=== PATIENT | female | born 1970 | race Caucasian/White ===

== ENCOUNTER → 2019-11-09 16:41 | Outpatient (BNVA) | payer BC, SELFPAY | PROVIDERS: Visit Provider Obstetrics & Gynecology | DX: Z12.4 Encounter for screening for malignant neoplasm of cervix (principal); N76.3 Subacute and chronic vulvitis; N95.1 Menopausal and female climacteric states | CPT/HCPCS: 88175 ==

== ENCOUNTER → 2020-08-26 08:24 | Outpatient (BNVA) | payer BC, SELFPAY | PROVIDERS: Visit Provider Plastic Surgery | DX: Z20.822 Contact with and (suspected) exposure to COVID-19 (principal); Z01.812 Encounter for preprocedural laboratory examination | CPT/HCPCS: 87635 ==

== ENCOUNTER → 2020-11-29 08:56 | Outpatient (BNVA) | payer BC, SELFPAY | PROVIDERS: Visit Provider Obstetrics & Gynecology | DX: R93.89 Abnormal findings on diagnostic imaging of other specified body structures (principal) | CPT/HCPCS: 76830; 88305 ==

== ENCOUNTER → 2021-11-17 12:04 | Outpatient (BNVA) | payer BC, SELFPAY | PROVIDERS: Visit Provider Obstetrics & Gynecology | DX: Z01.419 Encounter for gynecological examination (general) (routine) without abnormal findings (principal) | CPT/HCPCS: 87624 ==

== ENCOUNTER 2021-11-27 15:18 | Outpatient (CLI) | payer BC, SELFPAY ==
--- NOTE | 2021-11-27 15:26 | MM_ITS ---
WS: [id number] BILATERAL 3D TOMOSYNTHESIS DIGITAL SCREENING MAMMOGRAPHY WITH CAD CLINICAL INFORMATION: SCREENING HISTORY: Screening mammogram. No current complaints. COMPARISON: TECHNIQUE: Bilateral CC and MLO views. FINDINGS: Bilateral breast implants are intact. The breasts are composed of heterogeneous fibroglandular density tissue, which can limit the detectio n of small underlying mass lesions. No suspicious mass, asymmetry, calcifications, or architectural d istortion. No evidence of malignancy. MM/[id number] IMPRESSION: BI-RADS: 2-Benign FOLLOW UP: 1 Year Follow-up Recommend return to annual screening mammography.
== END 2021-11-27 15:19 | disposition home or self-care (01) ==
PROVIDERS: Visit Provider Obstetrics & Gynecology
DX: Z12.31 Encounter for screening mammogram for malignant neoplasm of breast (principal)
CPT/HCPCS: 77063; 77067

== ENCOUNTER 2022-01-02 07:12 | Day surgery (SDC) | payer BC, SELFPAY ==
[2021-12-31 12:56] VITALS: BMI 19.5
[2022-01-02 07:28] VITALS: BP 110/78; PULSE 64; RESP 18; TEMP 36.1; O2SAT 99
[2022-01-02] MEDS: sodium chloride 0.9% 1,000 ML 30 ML IV (07:36)
--- NOTE | 2022-01-02 08:19 | ANES.PREANE2 ---
Pre-Anesthetic Assessment Height/Weight: Height 1.6 m Weight 49.895 kg Temp Pulse Resp BP Pulse Ox 97 F L 64 18 110/78 99 01/02/22 07:28 01/02/22 07:28 01/02/22 07:28 01/02/22 07:28 01/02/22 07:28 Preop Diagnosis: need for colon screening Operation Date: 01/02/22 08:30 Proposed Procedures p Colonoscopy 17428,Z12.11(Not Applicable) - Aly Bauman DO Familial anesthetic complications: None Was Beta Isaak taken within 24 hours: N/A Was Clonidine taken within 24 hours: N/A Last intake: Intake Last Liquid Date 01/01/22 Last Liquid Time 22:00 Last Solid Date 12/31/21 Last Solid Time 19:00 Social No alcohol and No tobacco Exam alert, oriented x 3, clear to auscultation bilaterally and regular rate & rhythm Airway Submandibular: within normal limits Cervical ROM: within normal limits Mallampati: Class I Dentition: full History/ROS No significant complaints Pulmonary None reported CV/HEM None reported abnormal uterine bleeding Hepatic None reported GI None reported Metabolic None reported Musc/skel None reported Neuropsych None reported Anesthetic Plan ASA status: 1 Anesthesia: Anesthesia Evaluation, General and MAC Other: I discussed with the patient risks, goals, and benefits of MAC and general anesthesia. We discussed spectrum of MAC anesthesia including conversion to general as well as possibility of recall of intraoperative stimuli including discomfort/pain. Patient agrees to proceed with MAC. Risk of > 500 ml blood loss (7ml/kg in children): No Medications/Allergies Home Medications Medication Instructions Recorded Confirmed Last Taken Type clobetasol 0.05 % topical cream 1 applic TOPICAL BID PRN 11/09/19 01/02/22 12/30/21 History solodyne 90 mg PO DAILY 11/09/19 01/02/22 01/01/22 History ascorbate calcium (vitamin C) 500 2,000 mg PO DAILY tab 11/15/20 01/02/22 12/31/21 History mg tablet cholecalciferol (vitamin D3) 50 50 mcg PO DAILY 11/15/20 01/02/22 12/30/21 History mcg (2,000 unit) capsule turmeric root extract 1,053 mg 1,076 mg PO DAILY 11/15/20 01/02/22 12/29/21 History tablet estradiol 0.5 mg tablet 0.5 mg PO DAILY #90 tab 11/17/21 01/02/22 01/01/22 Rx medroxyprogesterone 5 mg tablet 5 mg PO .COMPLEX #42 tab 11/17/21 01/02/22 01/01/22 Rx Allergies Allergy/AdvReac Type Severity Reaction Status Date / Time Sulfa (Sulfonamide Allergy rash Verified 01/02/22 07:26 Antibiotics) Current Medications Generic Name Dose Route Start Last Admin Trade Name Padilla PRN Reason Stop Dose Admin Sodium Chloride 1,000 mls @ 30 mls/hr 01/02/22 07:15 01/02/22 07:36 Sodium Chloride 0.9% IV 01/03/22 07:14 30 mls/hr .Q24H LISA Administration PFSH Anesthesia Medical History Chronic vulvitis 10/25/2017: Vulvar itching and irritation present. On exam has thickened skin with white discoloration along the fold between the left labia majora and minora, starting at the level of the clitoris. Started on clobetasol. Perimenopause 10/2018: Reported started skipping cycles. Surgical History H/O breast implant (08/2020) Revision of breast implants (d/t capsular contractions). History of bilateral saline breast implants (06/16/19) implant exchange History of bilateral tubal ligation (~06/2000) History of breast augmentation (~01/2008) with reduction History of dilation and curettage (~09/1995) History of lumpectomy of left breast (~08/2001) Family History Father Heart disease Grandmother Diabetes maternal Social History Smoking and tobacco status: never smoked Alcohol intake: current Alcohol intake frequency: holidays/special occasions only Data Anesthesia Cardiac Studies: No Data to Display
--- NOTE | 2022-01-02 08:32 | P.HP_ITS ---
Providers/Chief Complaint Chief Complaint: need for colon screening History of Present Illness Angeles Huynh is a 51 year old female that presents for her first colonoscopy. She has no complaints Review of Systems General: Reports: 10 or more systems reviewed and unremarkable except in HPI and below Medications/Allergies Home Medications Medication Instructions Recorded Confirmed Last Taken Type clobetasol 0.05 % topical cream 1 applic TOPICAL BID PRN 11/09/19 01/02/22 12/30/21 History solodyne 90 mg PO DAILY 11/09/19 01/02/22 01/01/22 History ascorbate calcium (vitamin C) 500 2,000 mg PO DAILY tab 11/15/20 01/02/22 12/31/21 History mg tablet cholecalciferol (vitamin D3) 50 50 mcg PO DAILY 11/15/20 01/02/22 12/30/21 History mcg (2,000 unit) capsule turmeric root extract 1,053 mg 1,076 mg PO DAILY 11/15/20 01/02/22 12/29/21 History tablet estradiol 0.5 mg tablet 0.5 mg PO DAILY #90 tab 11/17/21 01/02/22 01/01/22 Rx medroxyprogesterone 5 mg tablet 5 mg PO .COMPLEX #42 tab 11/17/21 01/02/22 01/01/22 Rx Allergies Allergy/AdvReac Type Severity Reaction Status Date / Time Sulfa (Sulfonamide Allergy rash Verified 01/02/22 07:26 Antibiotics) PFSH Acute PFSH: Medical History Chronic vulvitis 10/25/2017: Vulvar itching and irritation present. On exam has thickened skin with white discoloration along the fold between the left labia majora and minora, starting at the level of the clitoris. Started on clobetasol. Perimenopause 10/2018: Reported started skipping cycles. Surgical History H/O breast implant (08/2020) Revision of breast implants (d/t capsular contractions). History of bilateral saline breast implants (06/16/19) implant exchange History of bilateral tubal ligation (~06/2000) History of breast augmentation (~01/2008) with reduction History of dilation and curettage (~09/1995) History of lumpectomy of left breast (~08/2001) Family History Father Heart disease Grandmother Diabetes maternal Social History Smoking and tobacco status: never smoked Alcohol intake: current Alcohol intake frequency: holidays/special occasions only Vitals/I&O/Wt Last Vital Signs Temp 97 F L 01/02/22 07:28 Pulse 64 01/02/22 07:28 Resp 18 01/02/22 07:28 BP 110/78 01/02/22 07:28 Pulse Ox 99 01/02/22 07:28 Weight last 48 hrs Weight 110 lb Physical Exam Narrative: General : Patient is well developed , no acute distress, oriented x3 Head : Normal cephalic, a-traumatic. Ears : Pinnae and external canal are normal. Hearing is normal. Eyes : PERRLA, Sclera and injection are normal. No conjunctival discharge. Nose : Mucous membranes are without erythema. Throat : buccal mucosa is normal, gums are without significant recession or hypertrophy. Lungs : Equal chest rise bilaterally, no use of accessory muscles, trachea is midline. Cor : Rate and rhythm are normal. Abdomen : Soft, ND, NT, no g/r/m Extremities : No edema, no cyanosis or clubbing, dorsalis pedis pulses are present bilaterally, non-tender to palpation of calves. Upper extremities are normal bilaterally. Back : non-tender to palpation, no CVA tenderness. Neuro : CN II - XII intact, Upper and lower extremities have equal and full strength A&P Assessment and plan (1) Colon cancer screening: Status: Acute Plan Colonoscopy The risks and benefits of the procedure, including bleeding, infection, intestinal perforation requiring surgery, missed lesion, or explained to the patient. He is understanding of the risks and wishes to proceed. Attestations Medical Necessity Statement*: Patient will not be staying Coding Level of Care Code Acute Ophthalmology Assistant for Katy Fwd Diagnoses Colon cancer screening Z12.11
[2022-01-02 09:13] VITALS: BP 100/66; PULSE 68; RESP 16; TEMP 36.1; O2SAT 100
[2022-01-02 09:27] VITALS: BP 121/71; PULSE 52; RESP 16; O2SAT 100
[2022-01-02 09:38] VITALS: BP 120/80; PULSE 52; RESP 18; O2SAT 100
[2022-01-02 10:27] VITALS: BP 147/84; PULSE 49; RESP 18; O2SAT 100
--- NOTE | 2022-01-02 10:42 | PC.NURSE ---
Dr. Bauman came and evaluated the patient due to abdominal pain. Dr. Bauman checked patients abdomen and reported that the patient has a lot of air and needs to get up and walk around to help pass the air. Patient does not want to get up at this time.
--- NOTE | 2022-01-02 16:24 | ANE.PACU2 ---
Inpatient post-anesthesia follow up: Airway intact: Yes Vital signs: Temperature 97 F Pulse Rate 49 Respiratory Rate 18 Blood Pressure 147/84 Pulse Oximetry 100 Oxygen Delivery Me thod Room Air Oxygen Flow Rate Fraction of Inspir ed Oxygen Hydration adequate: Yes Nausea and vomiting: No Pain level: 2 Mental status: Baseline
== END 2022-01-02 11:50 | disposition home or self-care (01) ==
PROVIDERS: Visit Provider Surgery
PROC: 0DJD8ZZ Inspection of Lower Intestinal Tract, Via Natural or Artificial Opening Endoscopic (ICD-10-PCS; CPT 45378; principal; 2022-01-02 08:30)
DX: Z12.11 Encounter for screening for malignant neoplasm of colon (principal)
CPT/HCPCS: 45378; J2704; J7030

== ENCOUNTER 2023-01-04 07:52 | Outpatient (CLI) | payer BC, SELFPAY ==
--- NOTE | 2023-01-04 08:00 | MM_ITS ---
WS: [id number] BILATERAL SCREENING DIGITAL BREAST MAMMOGRAPHY WITH JO-ANN DISPLACEMENT VIEWS. CAD PERFORMED. HISTORY: SCREENING COMPARISON: 11/27/2021, 11/07/2018 Bilateral craniocaudal and mediolateral oblique views are performed with tomosynthesis and SM. Jo-Ann displacement views in CC and MLO projection also performed. Breasts composition: There are scattered areas of fibroglandular density. Prepectoral implants are i ntact. No suspicious masses or calcifications. Portions of the breasts are being obscured by the impl ants. MM/[id number] IMPRESSION: BI-RADS: 2-Benign FOLLOW-UP: 1 Year Follow-up
== END 2023-01-04 07:53 | disposition home or self-care (01) ==
LOC: RAD 07:56
PROVIDERS: Visit Provider Obstetrics & Gynecology
DX: Z12.31 Encounter for screening mammogram for malignant neoplasm of breast (principal)
CPT/HCPCS: 77063; 77067

== ENCOUNTER 2024-02-21 11:11 | Outpatient (CLI) | payer BC, SELFPAY ==
--- NOTE | 2024-02-21 11:15 | MM_ITS ---
WS: [id number] BILATERAL SCREENING DIGITAL BREAST MAMMOGRAPHY WITH JO-ANN DISPLACEMENT VIEWS. CAD PERFORMED. HISTORY: SCREENING COMPARISON: 01/04/2023, 11/27/2021 Bilateral craniocaudal and mediolateral oblique views are performed with tomosynthesis and SM. Jo-Ann displacement views in CC and MLO projection also performed. Breasts composition: There are scattered areas of fibroglandular density. Retropectoral implants. No suspicious masses or calcifications. MM/[id number] IMPRESSION: BI-RADS: 2-Benign FOLLOW-UP: 1 Year Follow-up
== END 2024-02-21 11:12 | disposition home or self-care (01) ==
LOC: RAD 11:12
PROVIDERS: Visit Provider Nurse Practitioner Women's Health
DX: Z12.31 Encounter for screening mammogram for malignant neoplasm of breast (principal); Z00.00 Encounter for general adult medical examination without abnormal findings; R92.323 Mammographic fibroglandular density, bilateral breasts
CPT/HCPCS: 77063; 77067; 80053; 82306; 83036; 84439; 84443; 84481; 85025

== ENCOUNTER → 2024-04-27 09:15 | Outpatient (BNVA) | payer BC, SELFPAY | PROVIDERS: Visit Provider Internal Medicine | DX: E03.8 Other specified hypothyroidism (principal) | CPT/HCPCS: 36415; 84439; 84443; 86376; 86800 ==

== ENCOUNTER 2024-10-12 12:09 | Outpatient (CLI) | payer BC, SELFPAY ==
[2024-10-12 13:58] LABS: Free T4 Free Thyroxine 0.89 ng/dL (0.82-1.77); Thyroid Stimulating Hormone 5.15 uIU/mL (0.27-4.20)
== END 2024-10-12 12:10 | disposition home or self-care (01) ==
LOC: LAB 12:13
PROVIDERS: Visit Provider Internal Medicine
DX: E03.8 Other specified hypothyroidism (principal)
CPT/HCPCS: 36415; 84439; 84443

== ENCOUNTER 2025-03-20 10:48 | Outpatient (CLI) | payer BC, SELFPAY ==
--- NOTE | 2025-03-20 10:52 | MM_ITS ---
WS: [id number] BILATERAL 3D TOMOSYNTHESIS DIGITAL SCREENING MAMMOGRAPHY WITH CAD CLINICAL INFORMATION: SCREENING HISTORY: Screening mammogram. No current complaints. COMPARISON: 2023 TECHNIQUE: Bilateral CC and MLO views. FINDINGS: Bilateral breast implants appear intact Scattered fibroglandular densities bilaterally. No suspicious focal mass, asymmetry, calcifications, or architectural distortion. No evidence of malignancy. MM/MM [facility] tomosynthesis [id number] IMPRESSION: DENSITY: There are scattered areas of fibroglandular density. BI-RADS: 2 - Benign. FOLLOW UP: 1 Year Follow-up Recommend return to annual screening mammography.
== END 2025-03-20 10:49 | disposition home or self-care (01) ==
LOC: RAD 10:49
PROVIDERS: Visit Provider Nurse Practitioner Women's Health
DX: Z12.31 Encounter for screening mammogram for malignant neoplasm of breast (principal); Z01.419 Encounter for gynecological examination (general) (routine) without abnormal findings; R92.323 Mammographic fibroglandular density, bilateral breasts; M79.641 Pain in right hand; M79.642 Pain in left hand; M25.642 Stiffness of left hand, not elsewhere classified; M25.641 Stiffness of right hand, not elsewhere classified
CPT/HCPCS: 77063; 77067; 80053; 80076; 82306; 83036; 84439; 84443; 84481; 85025; 85651; 86038; 86140; 86160; 86200; 86431

== ENCOUNTER 2025-04-20 11:45 | Outpatient (CLI) | payer BC, SELFPAY ==
[2025-04-20 13:24] LABS: Free T4 Free Thyroxine 0.92 ng/dL (0.82-1.77); Thyroid Stimulating Hormone 3.77 uIU/mL (0.27-4.20)
== END 2025-04-20 11:46 | disposition home or self-care (01) ==
LOC: LAB 11:46
PROVIDERS: Visit Provider Internal Medicine
DX: E03.8 Other specified hypothyroidism (principal)
CPT/HCPCS: 36415; 84439; 84443